=== PATIENT | female | born 1945 | race Caucasian/White ===

== ENCOUNTER → 2019-10-20 | Outpatient (CLI) | payer MEDICARE, OTHER ==
[~2019-10-20] MED LIST: ACET-2065 PO; ACYC-114 PO; ALBU8.5H5 INH; ASPI-650 PO; CALC-126 PO; CHOL-29 PO; DOCU-131 PO; FLUT1DIS3 INH; HYDR-3240 PO; HYDR-36 PO; LECI400C PO; LEVO100T5 PO; LEVO112T4 PO; LYSI100010 PO; MULT-717 PO; NAPR220C2 PO; TRAM-47 PO; potassium PO
== END | disposition home or self-care (01) ==
LOC: CVU 15:39
PROVIDERS: ATTEND Internal Medicine Cardiovascular Disease
DX: I65.23 Occlusion and stenosis of bilateral carotid arteries (principal)
CPT/HCPCS: 93880